=== PATIENT | female | born 1985 | race Caucasian/White ===

== ENCOUNTER 2017-06-24 20:49 | Emergency (ER) | payer OTHER ==
[~2017-06-24] VITALS: Ht 165.1 cm; Wt 73.7 kg
[~2017-06-24 20:49] MED LIST: HYDROCODON-ACE1 EAC7 PO; IBUPROFEN800 MG PO
[2017-06-24 21:49] LABS: HEMATOCRIT 39.8 % (36.0-46.0); HEMOGLOBIN 13.2 G/DL (11.9-15.5); MCH 27.4 PG (29.0-34.0); MCHC 33.2 G/DL (30.0-36.0); MCV 82.6 FL (83-99); PLATELET COUNT 290 K/uL (156-360); RBC DIS.WIDTH-CV 13.2 % (11.8-14.6); RBC DIS.WIDTH-SD 39.6 % (39-53); RED BLOOD COUNT 4.82 M/uL (3.80-5.20); WHITE BLOOD COUNT 13.7 K/uL (4.1-10.2)
[2017-06-24 22:00] LABS: ALBUMIN 4.6 g/dL (3.2-4.8); CHLORIDE 106 mEq/L (99-109); SODIUM 137 mEq/L (136-147)
[2017-06-24 22:02] LABS: GLUCOSE 112 mg/dL (70-99)
[2017-06-24 22:03] LABS: TOTAL PROTEIN 7.9 g/dL (6.4-8.3)
[2017-06-24 22:04] LABS: TOTAL BILIRUBIN 0.6 mg/dL (0.0-1.0)
[2017-06-24 22:06] LABS: ALKALINE PHOSPHATASE 61 IU/L (3-129); CREATININE 0.9 mg/dL (0.6-1.3); GFR ESTIMATE (CALCULATED) > 59 mL/min/
[2017-06-24 22:07] LABS: UREA NITROGEN (BUN) 16 mg/dL (9-23)
[2017-06-24 22:08] LABS: AST (GOT) 12 IU/L (2-34)
[2017-06-24 22:09] LABS: ALT (GPT) 10 IU/L (3-49)
[2017-06-24 22:18] LABS: QUANTITATIVE HCG < 4.0 MIU/ML
[2017-06-24 23:22] LABS: LIPASE 18 U/L (1.0-51.0)
[2017-06-25 00:15] LABS: APPEARANCE TURBID ((CLEAR)); BILIRUBIN NEGATIVE; BLOOD MODERATE; COLOR YELLOW ((YELLOW)); GLUCOSE (STRIP) NEGATIVE; KETONES 20; LEUKOCYTES TRACE; NITRITE NEGATIVE; PROTEIN (STRIP) 30; SPECIFIC GRAVITY 1.026 (1.000-1.030); UROBILINOGEN 0.2 MG/DL (0.2-1.0)
[2017-06-25] MEDS ORDERED: BENTYL20 MG PO (01:01)
[2017-06-25] MEDS ORDERED: ZOFRAN ODT8 MG PO (01:01)
[2017-06-25 01:35] LABS: BACTERIA 3+ /HPF; EPITHELIAL CELLS 1+ /HPF; MUCUS 1+ /LPF; RED BLOOD CELLS NONE SEEN /HPF (0-5); UCUL ADDED? YES; WHITE BLOOD CELLS 0-5 /HPF (0-5)
[2017-06-25] MEDS ORDERED: KEFLEX500 MG PO (01:41)
[2017-06-25 01:57] VITALS: BP 113/80
== END 2017-06-25 02:00 | disposition home or self-care (01) ==
LOC: EME 20:49
DX: N39.0 Urinary tract infection, site not specified (principal); R11.2 Nausea with vomiting, unspecified; R19.7 Diarrhea, unspecified; F17.200 Nicotine dependence, unspecified, uncomplicated; Z88.0 Allergy status to penicillin
CPT/HCPCS: 80053; 81003; 83690; 84702; 85027; 87086; 99281; 99284; J0500